=== PATIENT | male | born 2005 | race Caucasian/White ===

== ENCOUNTER 2024-06-14 17:40 | Emergency (ER) | payer OTHER ==
--- NOTE | 2024-06-14 17:57 | ED Physician Documentation ---
PD HPI HEENT - Stated complaint Stated Complaint: R EYE PX - Chief complaint Chief Complaint: Heent - History obtained from History obtained from: Patient - History of Present Illness Timing - onset: How many weeks ago (3) Timing - duration: Weeks (3) Timing - details: Gradual onset, Still present, Waxing and waning (Initial onset focal redness with swelling and pimple-like appearance for a week or so and seen at a walk-in clinic and prescribed Augmentin. He states lessened redness around the eyelid but persisting inflammation and tender localized. Starting to increase a little again off the abx x days now.) Location: Other (right lower eyelid) Associated symptoms: No: Fever Review of Systems Eyes: reports: Discharge (did have drainage from spot for few days once on abx, but not since), Irritation. denies: Photophobia PD PAST MEDICAL HISTORY - Past Medical History Past Medical History: No Cardiovascular: None Respiratory: None Neuro: None Endocrine/Autoimmune: None GI: None : None HEENT: None Psych: None Musculoskeletal: None Derm: None - Past Surgical History Past Surgical History: No - Present Medications Home Medications: Ambulatory Orders Medication Instructions Recorded Confirmed Doxycycline Hyclate 100 mg PO BID 5 Days #10 cap 06/14/24 Neomycin/Bacit/P-Myx/Hydrocort 1 applic OP TID 7 Days #3.5 gm 06/14/24 [Nrs-Ddokh-Huki-Hc Eye Ointment] valACYclovir [Valtrex] 500 mg PO TID #15 tablet 06/14/24 - Allergies Allergies/Adverse Reactions: Allergies Allergy/AdvReac Type Severity Reaction Status Date / Time No Known Drug Allergies Allergy Verified 06/14/24 17:53 - Living Situation Living Arrangement: reports: Other (The patient is from [place] and 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 He is leaving [facility] after this week.) - Social History Does the pt smoke?: No Smoking Status: Never smoker Does the pt drink ETOH?: Yes Does the pt have substance abuse?: No - Immunizations Immunizations are current?: Yes - POLST Patient has POLST: No PD ED PE NORMAL - Vitals Vital signs reviewed: Yes - General General: Alert and oriented X 3, No acute distress, Well developed/nourished - HEENT HEENT: PERRL (The lower eyelid has a localized area of redness swelling and mild tenderness in the midportion. It does not protrude to the in or part. No conjunctival discharge or matting. There are several small bumps to the surface of the lesion. No fluctuance.), EOMI (no pain with eye movement.), Other (He does have a mild cold sore in the right corner of the mouth at the vermilion border. He states he gets these periodically.) - Neck Neck: Supple, no meningeal sign, No adenopathy - Derm Derm: Normal color, Warm and dry Results - Vitals Vitals: Vital Signs - 24 hr 06/14/24 17:42 Temperature 37.2 C Heart Rate 72 Respiratory 15 Rate Blood Pressure 150/76 H O2 Saturation 100 Oxygen O2 Source Room air PD Medical Decision Making - ED course Complexity details: d/w patient ED course: He has had the lesion on the lower eyelid that started sounding like a collision or early stye that then got red draining and involved most of the lower lid by history. Treated with Augmentin at a walk-in clinic. Most styes that are infected typically are more Staph aureus so it may have not hit the target as well. The patient states it drained on its own without I&D and the surrounding redness improved on the antibiotic. He is left with the central area that is tender warm and swollen. He has been off antibiotics for 4 to 5 days now and is having some increased redness. The appearance of it may certainly be altered because of the duration of this. However there is several small bumps to the surface. He has had cold sores previously and I wonder if he auto transferred a herpetic lesion to the lower lid that is persisting. However consideration would be persisting bacterial infection as well. As such I would treat topically with a Polysporin with steroid eye ointment to help with inflammation and topical infection. This combined with oral doxycycline but I am also adding in a Shira acyclovir as I believe the underlying initial process was herpetic. Shared discussion about this with the patient and he is in favor. 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 He will need to follow-up elsewhere if it is not improved well with this regimen. Departure - Departure Disposition: 01 Home, Self Care Clinical Impression: Hordeolum externum (stye) Condition: Stable Record reviewed to determine appropriate education?: Yes Instructions: ED Hordeolum Prescriptions: Doxycycline Hyclate 100 mg PO BID 5 Days #10 cap Neomycin/Bacit/P-Myx/Hydrocort [Bsu-Lgcpr-Fnok-Hc Eye Ointment] 1 applic OP TID 7 Days #3.5 gm valACYclovir [Valtrex] 500 mg PO TID #15 tablet Comments: This is does look like you are probably still has some infection to it. Eyelid infections (stye/hordeolum) commonly are Staph aureus type infections. I would therefore try a different antibiotic more targeted at staph infection both orally and topically. The topical antibiotic ointment would be applied just on the outer part of the eyelid but him using a I appropriate medication since it so close to there. You do not need to apply it on the eye surface like you would for pinkeye. The topical antibiotic also has an anti-inflammatory steroid in it as there may be just some inflammation left causing the persisting redness etc. (calazion). The appearance of the lesion on the eyelid does have several small bump appearance to it at this point. It is hard to tell given the duration how much is just persistent inflammation but I would be thinking of the idea that the initial redness and swelling and persistence may relate to a viral infection such as HSV and therefore would also add an antiviral medication for the next several days. [facility] [place]. I would anticipate amongst the 3 approaches that this should improve over the next 5 to 7 days. (I would anticipate even sooner than that). Forms: PCP List
[2024-06-14 17:58] VITALS: O2SAT 100
[2024-06-14] MEDS: valACYclovir 500 MG TABLET PO STA (18:22)
[2024-06-14] MEDS: DOXYCYCLINE 100 MG TABLET PO STA (18:22)
[2024-06-14 18:40] VITALS: BP 148/74
== END 2024-06-14 18:34 | disposition home or self-care (01) ==
LOC: ED 17:40
DX: H00.012 Hordeolum externum right lower eyelid (principal)
CPT/HCPCS: 99283; A9270